=== PATIENT | female | born 1985 | race Asian ===

== ENCOUNTER 2020-10-06 11:20 | Emergency (ER) | payer OTHER, BC, SELFPAY ==
[2020-10-06] VITALS (12 sets, daily range): BP systolic 104–160; BP diastolic 68–106; PULSE 69–88; RESP 15–24; TEMP 35.7; O2SAT 93–100; BMI 24.6
[2020-10-06 12:04] LABS: Add Manual Diff / Slide Review NO; Basophils Absolute Auto 100 /uL (0-100); Basophils Percent Auto 0.5 % (0-2); Eosinophils Absolute Auto 0 /uL (0-450); Eosinophils Percent Auto 0.2 % (2-4); Hematocrit 43.6 % (36-46); Lymphocytes Absolute Auto 900 /uL (1100-4500); Lymphocytes Percent Auto 8.2 % (25-40); Mean Corpuscular HGB Conc 34.4 % (30-36); Mean Corpuscular Hemoglobin 29.4 PG (26-34); Mean Corpuscular Volume 85.7 fL (80-100); Monocytes Absolute Auto 500 /uL (0-900); Neutrophils Absolute Auto 9300 /uL (1500-7000); Neutrophils Percent Auto 86.1 % (50-75); Platelet Count 183 X10^3/uL (150-400); Red Blood Cell Count 5.08 X10^6/uL (4.0-5.2); Red Cell Distribution Width 13.3 % (11.6-14.8); White Blood Cell Count 10.8 X10^3/uL (4.5-11.0)
[2020-10-06 12:18] LABS: Alanine Aminotransferase 54 IU/L (<35); Albumin 4.5 g/dL (3.5-5.0); Albumin Globulin Ratio 1.3 (1.0-2.8); Alkaline Phosphatase 119 U/L (38-126); Aspartate Aminotransferase 47 IU/L (14-36); BUN Creatinine Ratio 20.3 (6-22); Bilirubin Total 0.6 mg/dL (0.2-1.3); Blood Urea Nitrogen 14 mg/dL (7-17); Calcium 9.8 mg/dL (8.4-10.2); Carbon Dioxide 25 mmol/L (22-32); Chloride 104 mmol/L (98-107); Estimated Glomerular Filt Rate > 60.0 mL/min (>60); Globulin 3.6 g/dL (1.7-4.1); Glucose 105 mg/dL (70-100); HEMOLYSIS < 15 (0-50); Lipase 33 U/L (23-300); Potassium 3.7 mmol/L (3.4-5.1); Sodium 138 mmol/L (137-145); Total Protein 8.1 g/dL (6.3-8.2)
--- NOTE | 2020-10-06 12:55 | ED_ITS ---
HPI - Abdominal Pain <Mandeep Grimes PA-C - Last Filed: 10/06/20 20:08> General Chief Complaint: Abdominal Pain Stated Complaint: ABD PAIN-SENT BY [facility] Time Seen by Provider: 10/06/20 12:12 Source: patient Mode of arrival: Ambulatory Limitations: no limitations History of Present Illness HPI narrative: Lisa presents today with chief complaint upper abdominal pain that started this morning after she woke up. She reports that the pain has come in waves and is in the upper portion of her abdomen. There is nothing that seems to make her pain go away and nothing that seems to make it worse. She has tried Maalox, extra-strength Tums, both of which do not seem to give her any relief. Preserved abdominal history includes 2 sections. She denies any other surgeries. She reports slight nausea when she has pain but otherwise denies any other acute concerns or complaints at this time. Related Data Allergies Allergy/AdvReac Type Severity Reaction Status Date / Time latex Allergy Verified 10/06/20 11:22 Penicillins Allergy Verified 10/06/20 11:22 Sulfa (Sulfonamide Allergy Verified 10/06/20 11:22 Antibiotics) Review of Systems <Mandeep Grimes PA-C - Last Filed: 10/06/20 20:08> Review of Systems Narrative: As per HPI Patient History <Mandeep Grimes PA-C - Last Filed: 10/06/20 20:08> Social History Smoking Status: Unknown if ever smoked Smoking Status: Unknown if ever smoked alcohol intake frequency: a few times a week Substance Use Type: does not use Exam <KANA Reid Last Filed: 10/06/20 20:08> Narrative Exam Narrative: Exam Narrative: Const General: cooperative, healthy appearing, comfortable, no acute distress, well developed and well groomed Nutritional Appearance: average body habitus Orientation: alert and oriented x3 HENMT Head: normal to inspection and atraumatic Ears: hearing grossly normal bilaterally Nose: external nose normal and nares normal Face and sinus: normal facial exam Neck Neck: normal visual inspection and supple Resp Effort & Inspection: normal respiratory effort, able to speak in complete sentences, no audible wheezes, not labored, no nasal flaring and no respiratory distress, clear to auscultation bilaterally Cardiac Regular rate and rhythm, no discernible murmurs, rubs or gallops GI Nondistended, normal bowel sounds, epigastric and right upper quadrant tenderness, positive Abad sign. No rebound tenderness. Neuro General: alert, oriented x3, gait normal, tone normal and moves all extremities Cognition: normal cognition Speech: speech normal Gait: normal gait Psych Appearance: grossly normal and well kempt Mental Status: mental status grossly normal Speech and Movement: speech and movement normal Mood: congruent mood Affect: normal affect Initial Vital Signs Initial Vital Signs: Vital Signs Temperature 96.3 F L 10/06/20 11:22 Pulse Rate 82 10/06/20 11:22 Respiratory Rate 15 10/06/20 11:22 Blood Pressure 158/106 H 10/06/20 11:22 Pulse Oximetry 100 10/06/20 11:22 <Karen Duong DO - Last Filed: 10/11/20 08:34> Initial Vital Signs Initial Vital Signs: Vital Signs Temperature 96.3 F L 10/06/20 11:22 Pulse Rate 82 10/06/20 11:22 Respiratory Rate 15 10/06/20 11:22 Blood Pressure 158/106 H 10/06/20 11:22 Pulse Oximetry 100 10/06/20 11:22 Course <Mandeep Grimes PA-C - Last Filed: 10/06/20 20:08> Orders Ordered: Discontinued Medications Ketorolac Tromethamine (Ketorolac 30 Mg/Ml Vial) 15 mg IV NOW ONE Stop: 10/06/20 14:00 Last Admin: 10/06/20 14:06 Dose: 15 mg Documented by: COCO Ondansetron HCl (Ondansetron 4 Mg/2 Ml Inj) 4 mg IV NOW ONE Stop: 10/06/20 13:03 Last Admin: 10/06/20 13:18 Dose: 4 mg Documented by: COCO Vital Signs Vital signs: Vital Signs - 8 hr 10/06/20 12:30 10/06/20 13:00 10/06/20 13:01 Pulse Rate 74 83 88 Respiratory Rate 15 24 24 Blood Pressure 132/83 154/100 H Pulse Oximetry 97 95 93 10/06/20 13:30 10/06/20 13:31 10/06/20 14:00 Pulse Rate 76 69 76 Respiratory Rate 18 19 16 Blood Pressure 104/75 Pulse Oximetry 97 98 100 10/06/20 14:01 Pulse Rate 78 Respiratory Rate 15 Blood Pressure 134/68 Pulse Oximetry 97 <Karen Duong DO - Last Filed: 10/11/20 08:34> Orders Ordered: Discontinued Medications Ketorolac Tromethamine (Ketorolac 30 Mg/Ml Vial) 15 mg IV NOW ONE Stop: 10/06/20 14:00 Last Admin: 10/06/20 14:06 Dose: 15 mg Documented by: COCO Ondansetron HCl (Ondansetron 4 Mg/2 Ml Inj) 4 mg IV NOW ONE Stop: 10/06/20 13:03 Last Admin: 10/06/20 13:18 Dose: 4 mg Documented by: COCO Vital Signs Vital signs: Vital Signs - 8 hr 10/06/20 12:30 10/06/20 13:00 10/06/20 13:01 Pulse Rate 74 83 88 Respiratory Rate 15 24 24 Blood Pressure 132/83 154/100 H Pulse Oximetry 97 95 93 10/06/20 13:30 10/06/20 13:31 10/06/20 14:00 Pulse Rate 76 69 76 Respiratory Rate 18 19 16 Blood Pressure 104/75 Pulse Oximetry 97 98 100 10/06/20 14:01 Pulse Rate 78 Respiratory Rate 15 Blood Pressure 134/68 Pulse Oximetry 97 MDM - Abdominal Pain <Mandeep Grimes PA-C - Last Filed: 10/06/20 20:08> Lab Data Result diagrams: 10/06/20 11:50 10/06/20 11:50 Labs: Lab Results 10/06/20 10/06/20 Range/Units 11:50 11:50 WBC 10.8 (4.5-11.0) X10^3/uL RBC 5.08 (4.0-5.2) X10^6/uL Hgb 15.0 (12.0-16.0) g/dL Hct 43.6 (36-46) % MCV 85.7 (80-100) fL MCH 29.4 (26-34) PG MCHC 34.4 (30-36) % RDW 13.3 (11.6-14.8) % Plt Count 183 (150-400) X10^3/uL Neut % (Auto) 86.1 H (50-75) % Lymph % (Auto) 8.2 L (25-40) % [place] % (Auto) 5.0 (3-14) % Eos % (Auto) 0.2 L (2-4) % Baso % (Auto) 0.5 (0-2) % Neut # (Auto) 9300 H (5338-9839) /uL Lymph # (Auto) 900 L (0767-7082) /uL [place] # (Auto) 500 (0-900) /uL Eos # (Auto) 0 (0-450) /uL Baso # (Auto) 100 (0-100) /uL Sodium 138 (137-145) mmol/L Potassium 3.7 (3.4-5.1) mmol/L Chloride 104 (98-107) mmol/L Carbon Dioxide 25 (22-32) mmol/L BUN 14 (7-17) mg/dL Creatinine 0.69 (0.52-1.04) mg/dL Estimated GFR > 60.0 (>60) mL/min BUN/Creatinine Ratio 20.3 (6-22) Glucose 105 H (70-100) mg/dL Calcium 9.8 (8.4-10.2) mg/dL Total Bilirubin 0.6 (0.2-1.3) mg/dL AST 47 H (14-36) IU/L ALT 54 H (<35) IU/L Alkaline Phosphatase 119 (38-126) U/L Total Protein 8.1 (6.3-8.2) g/dL Albumin 4.5 (3.5-5.0) g/dL Globulin 3.6 (1.7-4.1) g/dL Albumin/Globulin Ratio 1.3 (1.0-2.8) Lipase 33 (23-300) U/L Point of care testing: Point of Care Testing Test Results Negative Urine Dip Bedside Urine Glucose Negative Bedside Urine Bilirubin - Negative Bedside Urine Ketone - Negative Urine Specific [place] 1.030 Bedside Urine Occult Blood - Negative Bedside Urine pH 6.0 Bedside Urine Protein - Negative Bedside Urine Urobilinogen - Negative Bedside Urine Nitrite - Negative Bedside Urine Leukocytes - Negative Esterase MDM Narrative Medical decision making narrative: Patient is well-appearing at this time and has a reassuring laboratory evaluation as well as ultrasonography. I suspect that she has biliary colic as well as hepatic steatosis which is responsible for her symptoms. I do not suspect any other acute etiologies to her symptoms at this time. Discussed variation and management and we will discharge her at this time with easy to digest foods and good oral hydration. She experiences fever, skin discoloration, worsening pain then she is to return for re-evaluation. Patient verbalizes understanding and agrees to plan and has no further concerns at this time. Thank you A [id number] system was used with the dictation of this note. Please disregard any spelling or grammatical errors. <Karen Aida Duong, DO - Last Filed: 10/11/20 08:34> Lab Data Labs: Lab Results 10/06/20 10/06/20 Range/Units 11:50 11:50 WBC 10.8 (4.5-11.0) X10^3/uL RBC 5.08 (4.0-5.2) X10^6/uL Hgb 15.0 (12.0-16.0) g/dL Hct 43.6 (36-46) % MCV 85.7 (80-100) fL MCH 29.4 (26-34) PG MCHC 34.4 (30-36) % RDW 13.3 (11.6-14.8) % Plt Count 183 (150-400) X10^3/uL Neut % (Auto) 86.1 H (50-75) % Lymph % (Auto) 8.2 L (25-40) % [place] % (Auto) 5.0 (3-14) % Eos % (Auto) 0.2 L (2-4) % Baso % (Auto) 0.5 (0-2) % Neut # (Auto) 9300 H (5859-8138) /uL Lymph # (Auto) 900 L (7952-9540) /uL [place] # (Auto) 500 (0-900) /uL Eos # (Auto) 0 (0-450) /uL Baso # (Auto) 100 (0-100) /uL Sodium 138 (137-145) mmol/L Potassium 3.7 (3.4-5.1) mmol/L Chloride 104 (98-107) mmol/L Carbon Dioxide 25 (22-32) mmol/L BUN 14 (7-17) mg/dL Creatinine 0.69 (0.52-1.04) mg/dL Estimated GFR > 60.0 (>60) mL/min BUN/Creatinine Ratio 20.3 (6-22) Glucose 105 H (70-100) mg/dL Calcium 9.8 (8.4-10.2) mg/dL Total Bilirubin 0.6 (0.2-1.3) mg/dL AST 47 H (14-36) IU/L ALT 54 H (<35) IU/L Alkaline Phosphatase 119 (38-126) U/L Total Protein 8.1 (6.3-8.2) g/dL Albumin 4.5 (3.5-5.0) g/dL Globulin 3.6 (1.7-4.1) g/dL Albumin/Globulin Ratio 1.3 (1.0-2.8) Lipase 33 (23-300) U/L Point of care testing: Point of Care Testing Test Results Negative Urine Dip Bedside Urine Glucose Negative Bedside Urine Bilirubin - Negative Bedside Urine Ketone - Negative Urine Specific [place] 1.030 Bedside Urine Occult Blood - Negative Bedside Urine pH 6.0 Bedside Urine Protein - Negative Bedside Urine Urobilinogen - Negative Bedside Urine Nitrite - Negative Bedside Urine Leukocytes - Negative Esterase Discharge Plan Departure Patient Disposition: Home Clinical Impression: Hepatic steatosis, Biliary colic Instructions: Gallstones, DI for Nonalcoholic Fatty Liver Disease Activity Restrictions/Additional Instructions: It was very nice to meet you this afternoon. Please go home and try the dietary restrictions that we discussed to help manage symptoms. Plan to get home, please call your primary care provider to schedule a follow-up appointment. If in the meantime you experience worsening pain, fever, skin yellowing, or have any other acute concerns or complaints do not hesitate to return to the emergency department for re-evaluation. Thank you Mandeep Grimes PAC Referrals: Doctor Diallo MD [Primary Care Provider] - <Karen Duong DO - Last Filed: 10/11/20 08:34> Cosign ED Attending Stefanature Attestation: I was immediately available in the department for consultation. Documentation has been reviewed.
--- NOTE | 2020-10-06 13:03 | DI.US.S_ITS ---
PROCEDURE: US ABDOMEN LIMITED INDICATIONS: RUQ PAIN TECHNIQUE: Real-time focused scanning was performed of the abdomen, with image documentation. COMPARISON: None. FINDINGS: The liver is normal in craniocaudad length, but is increased in echotexture consistent with fatty infiltration. The gallbladder appears normal but is tender during sonographic palpation. The bile ducts are normal in caliber with the common bile duct measuring 4.1 mm. The pancreas visualized is normal. IMPRESSION: Tenderness during sonographic palpation of the gallbladder but no sign of acute cholecystitis is present and no gallstones are seen. Hepatic steatosis. Dictated by: Bradley Phelps M.D. on 10/06/2020 at 13:33 Approved by: Bradley Phelps M.D. on 10/06/2020 at 13:34
[2020-10-06] MEDS: ONDANSETRON 4 MG/2 ML INJ IV (13:18)
[2020-10-06] MEDS: KETOROLAC 30 MG/ML VIAL 15 MG IV (14:06)
== END 2020-10-06 14:20 | disposition home or self-care (01) ==
PROVIDERS: Emergency Medicine; Emergency Provider Physician Assistant
DX: K80.50 Calculus of bile duct without cholangitis or cholecystitis without obstruction (principal); K76.0 Fatty (change of) liver, not elsewhere classified; R10.9 Unspecified abdominal pain
CPT/HCPCS: 36415; 76705; 80053; 81003; 81025; 83690; 85025; 93005; 93010; 96374; 96375; 99284; J1885; J2405